=== PATIENT | female | born 1965 | race African-American/Black ===

== ENCOUNTER 2016-08-15 06:17 | Emergency (ER) | payer BC ==
[~2016-08-15 06:17] MED LIST: AMOXICILLIN500 M1 PO; FLONASE16 GM
== END 2016-08-15 07:32 | disposition home or self-care (01) ==
LOC: CED 06:17
DX: H61.23 Impacted cerumen, bilateral (principal); F17.210 Nicotine dependence, cigarettes, uncomplicated; Z90.49 Acquired absence of other specified parts of digestive tract
CPT/HCPCS: 69210; 99282